=== PATIENT | female | born 1975 | race Caucasian/White ===

== ENCOUNTER 2018-12-04 11:28 | Emergency (ER) | payer OTHER, SELFPAY ==
[2018-12-04 11:29] VITALS: BP 146/70; PULSE 84; RESP 16; TEMP 36.6; O2SAT 100; BMI 24.3
--- NOTE | 2018-12-04 11:31 | ED.VIS.GEN ---
History of Present Illness Chief Complaint: Laceration Informant: Patient Onset: Today Current Severity: Mild Narrative: She was running inadvertently got tangled up with a dog that came to run with her fell striking left side of her head she had no LOC she is a nurse practitioner, denies any other complaints other than a slight laceration to the left temporal area. No neck chest abdominal pain no known 6 paresthesias no change in vision no neurologic complaints Past Medical History - Allergies and Home Meds Allergies/Adverse Reactions: Allergies minocycline Allergy (Verified 12/04/18 11:29) Hives Penicillins [PCN] Allergy (Verified 12/04/18 11:29) Hives Past Medical History: - Review of Systems ROS: - As above General: Reports: - - She has about a 1 cm abrasion very superficial laceration to the left christianity area otherwise her review of systems is negative she has no other complaints. Denies: Chills, Fever, Sweats Eyes: Denies: Visual changes - bilaterally, Diplopia ENT: Denies: Rhinorrhea, Sore throat Cardiovascular: Denies: Chest pain, Palpitations Respiratory: Denies: Dyspnea, Cough, Dyspnea on exertion Gastrointestinal: Denies: Abdominal pain, Nausea, Vomiting, Diarrhea, Melena, Hematochezia Genitourinary: Denies: Dysuria, Hematuria, Frequency Musculoskeletal: Denies: Back pain, Extremity Pain Skin: Denies: Rash, Wounds Neurological: Denies: Headache, Weakness, Numbness Physical Exam General: Well nourished, Well developed, No Acute Distress Head: Normocephalic, Trauma, - - There is a less than 1 cm linear type abrasion laceration to the left christianity area is well approximated there is no debris there is no subcu air or fluctuance beneath it, I cannot pull the wound apart her HEENT exam eyes nose and throat TMs are negative her neck is unremarkable neurologically she is normal moving all 4 and rest exam is unremarkable Eyes: Perrl, EOMI ENT: Moist mucous membranes, No rhinorrhea Neck: Supple, Nontender Cardiovascular: Regular rate, Regular rhythm, No murmurs Respiratory: No distress, CTA bilaterally, Chest nontender Abdomen: Soft, Nontender, Nondistended, Normal bowel sounds Back: Nontender, Normal Inspection Extremities: Nontender, No edema Skin: Normal color, No rash Neurological: Alert, Oriented x3, Cranial nerves II-XII grossly intact, Normal Strength, Normal Sensation Psychological: Normal affect, Normal Mood Diagnostic/Tx/Re-eval - Medical Decision Making This time we have observed her we have cleansed the wound, Steri-Stripped wound care applied tetanus update She is comfortable discharge home with head injury instruction to follow and to return for change in symptoms ED Disposition - Plan for ED Patient: Diagnosis: Head injury Instructions: LACERATION, Small/superficial, Not sutured, HEAD INJURY, No Wake-Up (Adult)
[2018-12-04] MEDS: Diphth,Pertuss(Acell),Tet Vac 0.5 ML Vial IM (12:05)
--- NOTE | 2018-12-04 12:29 | RAD_ITS ---
STUDY: X-RAY - LEFT WRIST REASON FOR EXAM: Female, 43 years old. Wrist pain following running. TECHNIQUE: 3 view(s) of the wrist were obtained. COMPARISON: None. FINDINGS: Normal visualized distal radius and ulna. Normal radiocarpal articulation. Normal distal radioulnar articulation. Normal carpal bones. Normal carpal articulations. Normal carpometacarpal articulation of the thumb. Normal second through fifth carpometacarpal articulations. Normal visualized metacarpal bones. The soft tissue structures are unremarkable. RAD/Wrist min 3 Views IMPRESSION: Normal x-ray examination of the wrist. Electronically Signed: Devon Alexandre MD at 13:28 EDT Tel , Service support ,
--- NOTE | 2018-12-04 12:30 | RAD_ITS ---
STUDY: X-RAY - LEFT HAND REASON FOR EXAM: Female, 43 years old. Fall. Pain. TECHNIQUE: 3 view(s) of the hand. COMPARISON: None. FINDINGS: There is no evidence of fracture or dislocation. There are no significant degenerative changes. There are no radiodense foreign bodies. RAD/Hand Min 3 Views IMPRESSION: No fracture or dislocation. Electronically Signed: Abraham Acosta, at 13:09 EDT Tel , Service support ,
--- NOTE | 2018-12-04 13:20 | ED.RN ---
PT AMBULATED TO THE RESTROOM WITHOUT ASSISTANCE, STEADY GAIT. PT DENIES ANY DIZZINESS OR BALANCE ISSUES.
[2018-12-04 13:24] VITALS: BP 138/75; PULSE 54; RESP 17; O2SAT 100
== END 2018-12-04 13:39 | disposition home or self-care (01) ==
PROVIDERS: Emergency Provider Emergency Medicine; Family Provider Nurse Practitioner Family; PCP Nurse Practitioner Family
DX: S09.90XA Unspecified injury of head, initial encounter (principal); W18.30XA Fall on same level, unspecified, initial encounter; Y93.02 Activity, running; Y92.89 Other specified places as the place of occurrence of the external cause; Y99.8 Other external cause status
CPT/HCPCS: 73110; 73130; 90715; 99283

== ENCOUNTER 2022-04-11 19:32 | Emergency (ER) | payer OTHER, SELFPAY ==
[2022-04-11 19:33] VITALS: BP 123/56; PULSE 67; RESP 18; TEMP 36.7; O2SAT 98; BMI 24.3
--- NOTE | 2022-04-11 20:07 | RAD_ITS ---
STUDY: X-RAY - LEFT WRIST REASON FOR EXAM: Female, 46 years old. injury to wrist TECHNIQUE: 3 view(s) of the wrist were obtained. COMPARISON: None. FINDINGS: Normal visualized distal radius and ulna. Normal radiocarpal articulation. Normal distal radioulnar articulation. Normal carpal bones. Normal carpal articulations. Normal carpometacarpal articulation of the thumb. Normal second through fifth carpometacarpal articulations. Normal visualized metacarpal bones. The soft tissue structures are unremarkable. RAD/Wrist min 3 Views IMPRESSION: Normal x-ray examination of the wrist. Electronically Signed: Tirso Martin MD at 20:57 EST ,
--- NOTE | 2022-04-11 20:11 | EDS_ITS ---
HPI <DALIA Fontenot - Last Filed: 04/11/22 22:20> History of Present Illness Chief Complaint: Upper Extremity Injury Narrative Narrative: Patient presents with her due to left wrist pain. Patient states she was walking her dog this evening when she tripped and fell over a branch onto her left arm with her wrist flexed. She states she has full range of motion and sensation in her left hand and left wrist. Patient states she did not hit her h ead and there was no loss of consciousness. PFSH <DALIA Fontenot - Last Filed: 04/11/22 22:20> [facility] Medical History No acute medical problems Home Medications fluoxetine 20 mg capsule 20 mg PO DAILY 12/04/18 [History Last Taken Unknown] levothyroxine 112 mcg tablet 112 mcg PO DAILY 12/04/18 [History Last Taken Unknown] spironolactone 25 mg tablet 25 mg PO DAILY 12/04/18 [History Last Taken Unknown] Allergy/AdvReac Type Severity Reaction Status Date / Time minocycline Allergy Hives Verified 04/11/22 19:46 Penicillins [PCN] Allergy Hives Verified 04/11/22 19:46 Social History Smoking Status: Never smoker ROS <DALIA Fontenot - Last Filed: 04/11/22 22:20> ROS ED Constitutional Constitutional ED: Denies chills, fever(s) or sweats Eyes Eyes: Denies blurry vision or change in vision ENT ENT ED: Denies rhinorrhea or sore throat Cardiovascular Cardiovascular: Denies chest pain Respiratory/Chest Respiratory/Chest: Denies cough or dyspnea Gastrointestinal Gastrointestinal: Denies abdominal pain, nausea or vomiting Musculoskeletal Musculoskeletal: Denies back pain, myalgias or neck pain Integumentary Denies abscess, Abrasions or rash Neurologic Neurologic: Denies headache(s), paresthesias or weakness EXAM <DALIA Fontenot - Last Filed: 04/11/22 22:20> Physical Exam Const Vital Signs: 04/11/22 19:33 Temperature 98.0 F Temperature Source Temporal Pulse Rate 67 Respiratory Rate 18 Blood Pressure 123/56 H Blood Pressure Mean 78 Pulse Ox 98 Oxygen Delivery Method Room Air Positive well nourished and well developed General Appearance ED: well developed HEENT Reports moist mucous membranes normocephalic and atraumatic; Negative for tenderness Eyes PERRL and EOMs intact bilaterally Neck full ROM and supple Resp normal respiratory effort and clear to auscultation bilaterally Cardio regular rate, regular rhythm and no murmurs GI non-tender, non-distended and no masses Back/Spine Cervical Spine: Negative for cervical spine tenderness Thoracic Spine / Upper Back: Negative for thoracic spinal tenderness Lumbar Spine / Lower Back: Negative for lumbar spinal tenderness Extremity normal to inspection and full ROM Extremity Narrative: Patient has tenderness to palpation along her left wrist and left hand. Patient is neurovascularly intact. Capillary refill is normal. No ecchymosis, erythema, or edema. Neuro oriented x3, CN's II-XII intact bilaterally, moves all extremities, no focal motor deficits and no sensory deficits noted Sensorium / Orientation: alert Motor Exam: strength 5/5 throughout Psych mental status grossly normal Skin Lesions: no lesions Rashes: no rashes Trauma: no lacerations or abrasions [facility] <DALIA Fontenot - Last Filed: 04/11/22 22:20> [facility] Narrative Medical decision making narrative: X-rays of the hand, wrist, and forearm do not show any signs of acute fracture. I am comfortable with patient discharging home with RICE. Instructed patient to follow-up with PCP for repeat imaging if pain worsens or does not get better in a week. Patient is agreeable with plan. Radiography Diagnostic Testing: X-ray of the left wrist, left forearm, left hand show no acute fracture. X-rays have also been interpreted by attending ED physician. <Dr. Alex Peterson MD - Last Filed: 04/11/22 23:52> [facility] Treatment and Re-Evaluation Narrative: I have personally performed a face to face assessment of the patient and have reviewed the LUIS Note. I performed a substantive portion of the visit including all aspects of the following. My underwood findings include: Patient reports walking her dog tripping over a stick and landing on her left outstretched arm. She is not exactly sure how she landed. She has some pain in the hand wrist and forearm area. None really in the elbow or shoulder. She never hit her head. No loss of consciousness. She is right-hand dominant. History is as above. Exam is showing patient be awake alert appropriate. No sign of head injury. No pain with neck motion. No trouble breathing. No tenderness at the elbow humerus or shoulder. There is a little bit of a nonfocal forearm tenderness but no deformity. I am really not getting much wrist tenderness although she has some pain with motion. No deformity. No snuffbox tenderness at all. She does have a little bit of tenderness toward the distal end of mostly the fourth and a little bit of the third metacarpal head. Again no deformity. Medical Decison Making: X-rays of these areas will be done. These are pending at this time. Results will be checked. X-rays of the hand wrist and forearm do not show any sign of acute fracture. Ice and rest should be appropriate. There is no snuffbox tenderness. If she still having any pain in the next week or 2 repeat images may be needed. Discharge Plan Triage Chief Complaint: Upper Extremity Injury ED Midlevel Provider: Jael Torres ED Provider: Alex Peterson Dx/Rx/DC Orders Clinical Impression: Acute wrist pain, Fall from slip, trip, or stumble Instructions: ED Wrist Sprain Prescriptions: No Action spironolactone 25 MG tablet 25 mg PO DAILY fluoxetine 20 MG capsule 20 mg PO DAILY levothyroxine 112 MCG tablet 112 mcg PO DAILY Primary Care Provider: Yrn Perez Referrals: NOT,DEFINED [Non-Staff] - Activity Restrictions/Additional Instructions: If you experience worsening of symptoms please see your PCP as you may need repeat imaging. Rest your wrist, elevate it if it becomes swollen, apply ice for 10 to 15 minutes 3-4 times daily for the next few days, you can take [id number] Tylenol or ibuprofen for pain relief. Disposition Disposition: Home, Self Care
--- NOTE | 2022-04-11 20:13 | RAD_ITS ---
STUDY: X-RAY - LEFT HAND REASON FOR EXAM: Female, 46 years old. injury TECHNIQUE: 3 view(s) of the hand. COMPARISON: None. FINDINGS: Normal radiocarpal articulation. Normal distal radioulnar joint. Normal visualized carpal bones. Normal carpal articulations Normal carpometacarpal articulation of the thumb. Normal second through fifth carpometacarpal joints. Normal metacarpi. Normal metacarpophalangeal joint of the thumb. Normal interphalangeal joint of the thumb. Normal proximal and distal phalanges of the thumb. Normal metacarpophalangeal joints of the second through fifth fingers. Normal proximal and distal interphalangeal joints of the second through fifth fingers. Normal phalanges of the second through fifth fingers. The soft tissue structures are unremarkable. RAD/Hand Min 3 Views IMPRESSION: Normal x-ray examination of the hand. Electronically Signed: Tirso Martin MD at 20:58 EST ,
--- NOTE | 2022-04-11 20:30 | RAD_ITS ---
STUDY: X-RAY - LEFT RADIUS AND ULNA REASON FOR EXAM: Female, 46 years old. injury TECHNIQUE: AP and lateral view(s) of the forearm. COMPARISON: None. FINDINGS: There is no demonstrated soft tissue swelling. Normal visualized radius. Normal visualized ulna. RAD/Forearm 2 Views IMPRESSION: Normal x-ray examination of the radius and ulna. Electronically Signed: Tirso Martin MD at 20:56 EST ,
[2022-04-11] MEDS: Acetaminophen 325 MG Tablet 650 MG PO (20:50)
[2022-04-11 21:45] VITALS: RESP 18
== END 2022-04-11 21:46 | disposition home or self-care (01) ==
PROVIDERS: Emergency Provider Emergency Medicine; PCP Family Medicine; Visit Provider Emergency Medicine
DX: M25.532 Pain in left wrist (principal)
CPT/HCPCS: 73090; 73110; 73130; 99283